=== PATIENT | male | born 1945 ===

== ENCOUNTER 2019-02-06 13:33 | Outpatient (CLI) | payer OTHER, MEDICARE ==
--- NOTE | 2019-02-06 14:03 | RAD ---
PA AND LATERAL VIEWS CHEST: HISTORY: Cough and wheezing. FINDINGS: The heart size is normal. The aorta is tortuous. The lungs are expanded without lobar consolidation , pneumothoraces, or pleural effusions. There are mild degenerative changes in the spine. IMPRESSION: No radiographic evidence of acute cardiopulmonary process. POS: [facility]
--- NOTE | 2019-02-06 14:04 | RAD ---
SINUS 3 VIEWS: HISTORY: Cough, wheezing. FINDINGS: There is opacification in the right maxillary sinus. No air fluid levels are seen. Further evaluation with CT scan of the paranasal sinuses would be helpful. POS: [facility]
== END 2019-02-06 13:34 | disposition home or self-care (01) ==
LOC: BICRAD 13:33
PROVIDERS: ATTEND Internal Medicine
DX: R06.2 Wheezing (principal); R05 Cough
CPT/HCPCS: 70220; 71046